=== PATIENT | male | born 1975 | race Caucasian/White ===

== ENCOUNTER → 2019-01-23 | Outpatient (CLI) | payer BC ==
--- NOTE | 2019-01-24 08:20 | RAD ---
EXAM: Hand,Right 3 Views CLINICAL HISTORY: M79.641 COMPARISON STUDY: None TECHNICAL: AP, lateral and oblique x-rays of the right hand FINDINGS: A oblique oriented fracture is present through the mid shaft of the fifth metacarpal. The fracture fragments are displaced 3 mm with the distal fracture fragment lateral and dorsal. Is no dislocation. No other fractures identified. IMPRESSION: 1. 3 mm displaced fifth metacarpal shaft fracture. Electronically signed by: Benjie Hale MD 01/24/2019 8:17 AM CDT
== END ==
LOC: RAD 09:04
PROVIDERS: ATTEND Orthopaedic Surgery
DX: S62.326A Displaced fracture of shaft of fifth metacarpal bone, right hand, initial encounter for closed fracture (principal)

== ENCOUNTER → 2019-02-03 | Outpatient (CLI) | payer BC | LOC: RAD 09:20 | PROVIDERS: ATTEND Orthopaedic Surgery | DX: S62.356D Nondisplaced fracture of shaft of fifth metacarpal bone, right hand, subsequent encounter for fracture with routine healing (principal) ==

== ENCOUNTER → 2019-02-13 | Outpatient (CLI) | payer BC ==
--- NOTE | 2019-02-13 14:19 | RAD ---
Procedure: XR RIGHT HAND 3 OR MORE VIEWS Exam Date: 02/13/2019 Ordering Provider: Casimiro Rodríguez Clinical Indication: S62.300D Comparison: 02/03/2019 Findings/impression: There is redemonstration of a minimally displaced fracture of the midshaft of the fifth metacarpal. No significant interval healing. Alignment is stable. No new fracture or dislocation in the right hand. Electronically signed by: Juan Guillaume MD 02/13/2019 2:16 PM CDT
== END ==
LOC: RAD 07:54
PROVIDERS: ATTEND Orthopaedic Surgery
DX: S62.326D Displaced fracture of shaft of fifth metacarpal bone, right hand, subsequent encounter for fracture with routine healing (principal)

== ENCOUNTER → 2019-03-14 | Outpatient (CLI) | payer BC ==
--- NOTE | 2019-03-14 14:11 | RAD ---
EXAM DESCRIPTION: Hand,Right 3 Views CLINICAL HISTORY: FX COMPARISON: None Available. TECHNIQUE: AP, LATERAL, AND OBLIQUE radiographs of the right hand were obtained. FINDINGS: The visualized bones appear well mineralized. Oblique fracture through the midshaft of the fifth metacarpal with surrounding callus formation, suggesting some interval healing. The soft tissues appear grossly unremarkable. IMPRESSION: Oblique fracture through the midshaft of the fifth metacarpal with surrounding callus formation, suggesting some interval healing. Electronically signed by: Franchesca Maya MD 03/14/2019 2:09 PM CDT
== END ==
LOC: RAD 03-13 12:01
PROVIDERS: ATTEND Orthopaedic Surgery
DX: S62.306D Unspecified fracture of fifth metacarpal bone, right hand, subsequent encounter for fracture with routine healing (principal)

== ENCOUNTER → 2019-04-08 | Outpatient (CLI) | payer BC ==
--- NOTE | 2019-04-08 10:53 | RAD ---
EXAM DESCRIPTION: Hand,Right 3 Views CLINICAL HISTORY: S62.306D COMPARISON: Previous x-rays of the right hand March 14, 2019 TECHNIQUE: AP, LATERAL, AND OBLIQUE FINDINGS: Three-view right hand shows healing fracture of the mid diaphysis of the right fifth metacarpal with no change in alignment compared to previous study. Callus formation appears increased. There is no underlying bone lesion. There are no significant arthritic changes. There is no radiopaque foreign body. Other bones in the field of view appear intact. IMPRESSION: Healing fracture of the right fifth metacarpal. Electronically signed by: Leroy Light MD 04/08/2019 10:51 AM CDT
== END ==
LOC: RAD 07:32
PROVIDERS: ATTEND Orthopaedic Surgery
DX: S62.306D Unspecified fracture of fifth metacarpal bone, right hand, subsequent encounter for fracture with routine healing (principal)

== ENCOUNTER → 2019-05-09 | Outpatient (CLI) | payer BC ==
--- NOTE | 2019-05-09 11:09 | RAD ---
EXAM DESCRIPTION: Hand,Right 3 Views CLINICAL HISTORY: FX follow-up COMPARISON: Previous study April 08, 2019 TECHNIQUE: AP, LATERAL, AND OBLIQUE FINDINGS: Three-view right hand shows healing fracture of the fifth metacarpal with bridging callus and decreased width of the fracture line compared to previous study. The degree of palmar angulation is slight and unchanged since previous. Other bones in the field of view appear intact.. IMPRESSION: Healing fracture of the right fifth metacarpal. Electronically signed by: Leroy Light MD 05/09/2019 11:07 AM CDT
== END ==
LOC: RAD 07:22
PROVIDERS: ATTEND Orthopaedic Surgery
DX: S62.306D Unspecified fracture of fifth metacarpal bone, right hand, subsequent encounter for fracture with routine healing (principal)